=== PATIENT | male | born 1985 | race Two or more races ===

== ENCOUNTER 2024-02-03 10:56 | Emergency (ER) | payer OTHER ==
[~2024-02-03] VITALS: Ht 170.2 cm; Wt 80.6 kg
[2024-02-03 11:56] VITALS: BP 142/101; PULSE 121; RESP 16; TEMP 98; O2SAT 96
[2024-02-03] MEDS ORDERED: NAP500T PO (13:24)
[2024-02-03] MEDS ORDERED: CEPH500C PO (13:24)
== END 2024-02-03 13:25 | disposition home or self-care (01) ==
LOC: ER 10:56
DX: M53.3 Sacrococcygeal disorders, not elsewhere classified (principal); E11.9 Type 2 diabetes mellitus without complications; I10 Essential (primary) hypertension
CPT/HCPCS: 72220